=== PATIENT | male | born 1975 | race Caucasian/White ===

== ENCOUNTER 2020-09-14 11:43 | Outpatient (CLI) | payer OTHER | END 2020-09-14 11:44 | disposition home or self-care (01) | LOC: CTENTCT 11:43 | PROVIDERS: ATTEND Otolaryngology Plastic Surgery within the Head & Neck | DX: J32.9 Chronic sinusitis, unspecified (principal) | CPT/HCPCS: 70486 ==

== ENCOUNTER 2020-10-07 06:47 | Day surgery (SDC) | payer OTHER ==
[2020-10-06 13:43] VITALS: BMI 25.7
[2020-10-07] MEDS ORDERED: AFRIN NASAL MIST 15 ML BOT ONE ×2 (07:22→07:56)
[2020-10-07] MEDS ORDERED: Fentanyl 100 MCG/2 ML VIAL ONE ×3 (07:55→11:45)
[2020-10-07] MEDS ORDERED: SUGAMMADEX SODIUM 200 MG/2 ML VIAL ONE (07:55)
[2020-10-07] MEDS ORDERED: Famotidine/PF 20 mg/2ml Vial ONE (07:55)
[2020-10-07] MEDS ORDERED: Lidocaine 1% w/Epinephrine 1:100K 20 ML VIAL ONE (07:56)
[2020-10-07] MEDS ORDERED: Bacitracin Zinc Ointment 30 gm TUBE ONE (07:56)
[2020-10-07] MEDS ORDERED: Lidocaine 4% Topical Sol 50 ML BOT ONE (08:06)
[2020-10-07] MEDS ORDERED: Lidocaine 1% PF 5 ML VIAL ONE (09:06)
[2020-10-07] MEDS ORDERED: PROPOFOL 200 MG/20 ML VIAL ONE (09:06)
[2020-10-07] MEDS ORDERED: Metoclopramide HCl 10 MG/2 ML VIAL ONE (09:06)
[2020-10-07] MEDS ORDERED: Ondansetron PF 4 MG/2 ML Vial ONE (09:06)
[2020-10-07] MEDS ORDERED: Succinylcholine 200 MG/10 ml SYRINGE FS ONE (09:06)
[2020-10-07] MEDS ORDERED: Dexamethasone 20 MG/5 ML VIAL ONE (09:06)
[2020-10-07] MEDS ORDERED: PHENYLEPHRINE-NS 100 MCG/ML 10 ML SYRINGE ONE (09:06)
[2020-10-07] MEDS ORDERED: Midazolam HCl 2 mg/2 ml Vial ONE (09:21)
[2020-10-07] MEDS ORDERED: HYDROcodone/Acetaminophen 5/325 mg Tablet ONE (12:46)
== END 2020-10-07 13:30 | disposition home or self-care (01) ==
LOC: SDC 06:47
PROVIDERS: ATTEND Otolaryngology Plastic Surgery within the Head & Neck
PROC: 09TQ8ZZ Resection of Right Maxillary Sinus, Via Natural or Artificial Opening Endoscopic (ICD-10-PCS; principal; 2020-10-07)
PROC: 09QK0ZZ Repair Nasal Mucosa and Soft Tissue, Open Approach (ICD-10-PCS; principal; 2020-10-07)
PROC: 09TL0ZZ Resection of Nasal Turbinate, Open Approach (ICD-10-PCS; principal; 2020-10-07)
PROC: 09BS8ZZ Excision of Right Frontal Sinus, Via Natural or Artificial Opening Endoscopic (ICD-10-PCS; principal; 2020-10-07)
PROC: 099X8ZZ Drainage of Left Sphenoid Sinus, Via Natural or Artificial Opening Endoscopic (ICD-10-PCS; principal; 2020-10-07)
PROC: 09TR8ZZ Resection of Left Maxillary Sinus, Via Natural or Artificial Opening Endoscopic (ICD-10-PCS; principal; 2020-10-07)
PROC: 8E09XBZ Computer Assisted Procedure of Head and Neck Region (ICD-10-PCS; principal; 2020-10-07)
PROC: 09BT8ZZ Excision of Left Frontal Sinus, Via Natural or Artificial Opening Endoscopic (ICD-10-PCS; principal; 2020-10-07)
PROC: 09BR8ZZ Excision of Left Maxillary Sinus, Via Natural or Artificial Opening Endoscopic (ICD-10-PCS; principal; 2020-10-07)
PROC: 09SM0ZZ Reposition Nasal Septum, Open Approach (ICD-10-PCS; principal; 2020-10-07)
PROC: 09BQ8ZZ Excision of Right Maxillary Sinus, Via Natural or Artificial Opening Endoscopic (ICD-10-PCS; principal; 2020-10-07)
PROC: 099W8ZZ Drainage of Right Sphenoid Sinus, Via Natural or Artificial Opening Endoscopic (ICD-10-PCS; principal; 2020-10-07)
DX: J32.4 Chronic pansinusitis (principal); J33.8 Other polyp of sinus; J30.89 Other allergic rhinitis; J34.2 Deviated nasal septum; J34.3 Hypertrophy of nasal turbinates; J34.89 Other specified disorders of nose and nasal sinuses; Z88.5 Allergy status to narcotic agent
CPT/HCPCS: 88304; 93005; 93010; C1889; J1100; J2250; J2405; J2704; J2765; J3010; S0028